=== PATIENT | male | born 1990 | race American Indian/Alaskan Native ===

== ENCOUNTER 2020-11-12 12:38 | Emergency (ER) | payer OTHER ==
[2020-11-12 14:00] VITALS: BP 148/90
[2020-11-12] MEDS ORDERED: traMADol 50 MG TAB PO ONE (15:31)
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
== END 2020-11-12 16:55 | disposition home or self-care (01) ==
LOC: ED 12:38
DX: S16.1XXA Strain of muscle, fascia and tendon at neck level, initial encounter (principal); S39.012A Strain of muscle, fascia and tendon of lower back, initial encounter; Z79.899 Other long term (current) drug therapy; V89.2XXA Person injured in unspecified motor-vehicle accident, traffic, initial encounter; Y93.89 Activity, other specified; Y92.488 Other paved roadways as the place of occurrence of the external cause; Y99.8 Other external cause status
CPT/HCPCS: 72040; 72100; 99283